=== PATIENT | female | born 1995 | race Caucasian/White ===

== ENCOUNTER 2017-11-05 21:32 | Emergency (ER) | payer SELFPAY ==
[2017-11-05 21:42] VITALS: BP 129/86; PULSE 100; RESP 20; TEMP 98.1; O2SAT 100
[2017-11-05] MEDS ORDERED: Tetracaine 0.5% Ophth 2 ML BOTTLE OD ONE (21:56)
[2017-11-05] MEDS ORDERED: Erythromycin 0.5% Ophth Oint 1 APPLIC/3.5 G OD STA (21:57)
[2017-11-05] MEDS ORDERED: Tetracaine 0.5% Ophth (OR ONLY) ONE (21:59)
[2017-11-05] MEDS ORDERED: Erythromycin 0.5% Ophth Oint 1 APPLIC/3.5 G ONE (21:59)
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
== END 2017-11-05 23:00 | disposition home or self-care (01) ==
LOC: C.ER 21:32
DX: S01.111A Laceration without foreign body of right eyelid and periocular area, initial encounter (principal); Y08.89XA Assault by other specified means, initial encounter; Y92.89 Other specified places as the place of occurrence of the external cause